=== PATIENT | male | born 1970 | race Caucasian/White ===

== ENCOUNTER 2025-07-31 18:59 | Emergency (ER) | payer OTHER ==
[~2025-07-31] VITALS: Ht 172.7 cm; Wt 130.0 kg
[2025-07-31 19:25] VITALS: RESP 28
[2025-07-31 19:40] LABS: Hematocrit 36.3 % (41.0-53.0); Hemoglobin 12.7 g/dL (13.5-17.5); Mean Corpuscular Hemoglobin 29.0 pg (28.0-32.0); Mean Corpuscular Volume 83.0 fL (80.0-100.0); Nucleated Red Blood Cells % 0.0 %
--- NOTE | 2025-07-31 19:44 | ED.PDOC ---
History of Present Illness HPI Comments 55-year-old, morbidly obese male is brought in by ambulance from [facility] urgent care facility for chief complaint of abdominal and back pain, dysuria, fever, and chills. Significant history for gastritis, GERD, hypertension, sleep apnea, and cholecystectomy. Per EMS personnel report, staff at aforementioned facility called after evaluating the patient for symptoms he has had for the past week and finding him with a temperature of 106.0 F. Patient reports on, initially, being evaluated for symptoms at [facility] on 07/29/2025 and being found with a UTI and prescribed antibiotics after he was suspected on having sepsis then. Patient was given 1 g of Tylenol and ibuprofen prior to EMS personnel arrival on scene. On scene, patient was found NSTEMI with tachycardic rate via 12 lead. All remaining vitals were noted to have been stable and within normal limits, with an initial blood glucose of 165. Patient denies having any chest pain, shortness of breath, or further acute symptoms. EMS interventions: Dextrose and aspirin. Chief Complaint: Fever Time Seen by MD: 19:00 Reviewed Notes: [facility] Technician Notes Allergies: Coded Allergies: NO KNOWN ALLERGIES (Unverified , 07/31/25) Information Source: Patient Mode of Arrival: EMS Severity: Moderate Timing: Days Duration: Since onset Prehospital treatment: 12 Lead EKG, Accucheck, ASA, Last Sorter, Treatment (Dextrose) Past Medical History PAST MEDICAL HISTORY: GERD, HTN Past Medical History (Other): Gastritis Sleep apnea Surgical History: Cholecystectomy Surgical History (Other): Dental implants Right shoulder repair status post torn rotator cuff Family History Family History: No family hx of Cancer, No family hx of DM, No family hx of Heart veronica, No family hx of HTN, No family hx ofKidney veronica, No family hx of Liver veronica, No family hx of Lung veronica, No family hx of Stroke Social History Smoker: Non-Smoker Alcohol: Denies ETOH Use Drugs: Denies Drug Use Lives In: Home Constitutional: reports: chills, fever; denies: diaphoresis, fatigue, malaise, sweats, weakness, others EENTM: denies: blurred vision, double vision, ear bleeding, ear discharge, ear drainage, ear pain, ear ringing, eye pain, eye redness, hearing loss, mouth pain, mouth swelling, nasal discharge, nose bleeding, nose congestion, nose pain, photophobia, tearing, throat pain, throat swelling, voice changes, others Respiratory: denies: cough, hemoptysis, orthopnea, SOB at rest, shortness of breath, SOB with excertion, stridor, wheezing, others Cardiovascular: denies: chest pain, dizzy spells, diaphoresis, Dyspnea on exertion, edema, irregular heart beat, left arm pain, lightheadedness, palpitati ons, PND, syncope, others Gastrointestinal: reports: abdominal pain; denies: abdomen distended, blood streaked bowels, constipated, diarrhea, dysphagia, difficulty swallowing, hematemesis, melena, nausea, poor appetite, poor fluid intake, rectal bleeding, rectal pain, vomiting, others Genitourinary: reports: dysuria; denies: burning, flank pain, frequency, hematuria, incontinence, penile discharge, penile sore, pain, testicle pain, testicle swelling, urgency, others Neurological: denies: dizziness, fainting, headache, left sided numbness, left sided weakness, numbness, paresthesia, pre-existing deficit, right sided numbness, right sided weakness, seizure, speech problems, tingling, tremors, weakness, others Musculoskeletal: reports: back pain; denies: gout, joint pain, joint swelling, muscle pain, muscle stiffness, neck pain, others Integumetry: denies: bruises, change in color, change in hair/nails, dryness, laceration, lesions, lumps, rash, wounds, others Allergic/Immunocompromised: denies: Difficulty Healing, Frequent Infections, Hives, Itching, others Hematologic/Lymphatic: denies: anemia, blood clots, easy bleeding, easy bruising, swollen glands, others Endocrine: denies: excessive hunger, excessive sweating, excessive thirst, excessive urination, flushing, intolerance to cold, intolerance to heat, unexplained weight gain, unexplained weight loss, others Psychiatric: denies: anxiety, bipolar disorder, depression, hopeless, panic disorder, schizophrenia, sleepless, suicidal, others All Other Systems: Reviewed and Negative Physical Exam General Appearance: Moderate Distress HEENT: Normal ENT Inspection, Pharynx Normal, TMs Normal Neck: Full Range of Motion, Non-Tender, Normal, Normal Inspection Respiratory: Chest Non-Tender, Lungs Clear, No Accessory Muscle Use, No Respiratory Distress, Normal Breath Sounds Cardiovascular: No Edema, No JVD, No Murmur, No Gallop, Tachycardia Breast Exam: Deferred Gastrointestinal: No Organomegaly, Non Tender, No Pulsatile Mass, Normal Bowel Sounds, Soft Genitalia: Deferred Pelvic: Deferred Rectal: Deferred Extremities: No calf tenderness, Normal capillary refill, Normal inspection, Normal range of motion, Non-tender, No pedal edema Musculoskeletal : Apperance: Normal Neurologic: Alert, rf manager II-XII nml as Tested, Motor Weakness, Normal Affect, Normal Mood, No Sensory Deficits Cerebellar Function: Normal Reflexes: Normal Skin: Dry, Normal Color, Warm Lymphatic: No Adenopathy Was a procedure done? Was a procedure done?: No EKG EKG #1: Pulse Rate (adult): 117 [place]: Normal Cardiac Rhythm: ST Hypertrophy: None ST: Normal EKG #2: Pulse Rate (adult): 110 [place]: Normal Cardiac Rhythm: ST Block: None Hypertrophy: None ST: Normal Differential Dx Considerations may include: VT, PE, ACS, CAD, URI, pneumonia, angina, cholelithiasis, nephrolithiasis, pyelonephritis, cystitis, among others X-Ray, Labs, Meds, VS Vital Signs Date Time Temp Pulse Resp B/P (MAP) Pulse Ox O2 Delivery O2 Flow Rate FiO2 07/31/25 22:03 104 07/31/25 20:28 110 07/31/25 19:48 110 07/31/25 19:43 117 07/31/25 19:25 28 Room Air* 0 21 07/31/25 19:25 100.6 114 29 110/70 (83) 100.6 07/31/25 19:03 100.6 116 22 125/54 95 100.6 07/31/25 19:00 117 Lab Test 07/31/25 20:45 07/31/25 19:12 Range/Units Urine Color Light-orange Yellow Urine Clarity Turbid H Clear Urine pH 7.5 5.0-9.0 Urine Specific [place] 1.016 1.001-1.035 Urine Protein 1+ H Negative Urine Ketones Negative Negative Urine Blood 3+ H Negative /uL Urine Nitrite Negative Negative Urine Bilirubin Negative Negative Urine Urobilinogen Normal Negative mg/dL Urine Leukocyte Esterase 3+ Negative /uL Urine RBC 1256 0 - 3 /hpf Urine Microscopic WBC 138 H 0-3 /HPF Urine Squamous Epithelial Cells None seen <5 /hpf Urine Bacteria None seen None Seen /hpf Urine Mucus Few None Seen Urine Glucose Normal Normal mg/dL White Blood Count 11.2 H 4.4-10.8 10^3/uL Red Blood Count 4.37 L 4.5-5.90 10^6/uL Hemoglobin 12.7 L 13.5-17.5 g/dL Hematocrit 36.3 L 41.0-53.0 % Mean Corpuscular Volume 83.0 80.0-100.0 fL Mean Corpuscular Hemoglobin 29.0 28.0-32.0 pg Mean Corpuscular Hemoglobin Concent 34.9 32.0-36.0 g/dL Red Cell Distribution Width 14.8 H 11.8-14.3 % Platelet Count 206 140-450 10^3/uL Mean Platelet Volume 8.2 6.9-10.8 fL Neutrophils (%) (Auto) 87.2 H 37.0-80.0 % Lymphocytes (%) (Auto) 6.0 L 10.0-50.0 % Monocytes (%) (Auto) 5.7 0.0-12.0 % Eosinophils (%) (Auto) 0.8 0.0-7.0 % Basophils (%) (Auto) 0.3 0.0-2.0 % Neutrophils # (Auto) 9.8 H 1.6-8.6 10 ^3/uL Lymphocytes # (Auto) 0.7 0.4-5.4 10 ^3/uL Monocytes # (Auto) 0.6 0-1.3 10 ^3/uL Eosinophils # (Auto) 0.1 0-0.8 10 ^3/uL Basophils # (Auto) 0 0-0.2 10 ^3/uL Nucleated Red Blood Cells 0.0 % Sodium Level 136 136-145 mmol/L Potassium Level 3.6 3.5-5.1 mmol/L Chloride Level 102 98-107 mmol/L Carbon Dioxide Level 23 20-31 mmol/L Anion Gap 11 5-15 Blood Urea Nitrogen 12 9-23 mg/dL Creatinine 0.87 0.700-1.30 mg/dL Glomerular Filtration Rate Calc 101 >90 mL/min BUN/Creatinine Ratio 13.8 10.0-20.0 Serum Glucose 182 H 74-106 mg/dL Lactic Acid Level 1.5 0.4-2.0 mmol/L Calcium Level 9.0 8.7-10.4 mg/dL Current Medications Medications (Trade) Dose Ordered Sig/Raven Route Start Time Stop Time Status Last Admin Levofloxacin/ Dextrose 100 ml @ 100 mls/hr ONCE ONCE IV 07/31/25 22:45 07/31/25 23:44 07/31/25 22:53 Chest x-ray shows: IMPRESSION: 1. Prominent bronchovascular markings bilaterally findings may represent chronic or acute disease there are no prior studies for comparison. The patient had an IV Hep-Lock established The patient was given normal saline. The patient was given Toradol IV push for the pain The urine test is positive for sneezing and a UTI The CBC shows an elevated white blood cell count of 11.2 The lactic acid level is within normal limits. At this time, the patient is being transferred to [place]. The patient has a temperature of 100.6 We are giving the patient is more normal saline and the patient will also have vancomycin added The patient is is being passed at this time We spoke with [place] and the authorization number is [id number] Images Reviewed?: Images reviewed and evaluated by me Time of 1ST Reevaluation: 19:30 Reevaluation 1ST: Unchanged Patient Education/Counseling: Diagnosis, Treatment, Prognosis Family Education/Counseling: No Family Present SEPSIS Sepsis Screen Date sepsis recognized/suspect: Jul 31, 2025 Time Sepsis recognized/suspect: 1907 Recent Procedure: No On Antibiotic Therapy: Yes Respiratory Rate >20: Yes Heart Rate >90: Yes Temp<36 C (96.8 F) or >38.3 C: Yes SBP <90 or MAP <65 mmHG: No New Acute Mental Status Change: No Is the patient on CPAP, BIPAP,: No Physician Orders Chest Portable (07/31/25 19:39) Heplock Iv (07/31/25 19:06) Last Sorter (07/31/25 19:06) Blood Pressure (07/31/25 19:06) Pulse Oximetry (07/31/25 19:06) Blood Culture (07/31/25 19:06) Levofloxacin 500mg (Levaquin 500mg/ 100m (07/31/25 22:45) Acetaminophen Tablet (Tylenol Tablet) (07/31/25 23:15) Vital Signs Date Time Temp Pulse Resp B/P (MAP) Pulse Ox O2 Delivery O2 Flow Rate FiO2 11/24/25 22:03 104 07/31/25 20:28 110 07/31/25 19:48 110 07/31/25 19:43 117 07/31/25 19:25 28 Room Air* 0 21 07/31/25 19:25 100.6 114 29 110/70 (83) 100.6 07/31/25 19:03 100.6 116 22 125/54 95 100.6 07/31/25 19:00 117 Laboratory Tests Test 07/31/25 19:12 Lactic Acid Level 1.5 mmol/L (0.4-2.0) White Blood Count 11.2 10^3/uL (4.4-10.8) H Medications Medications Dose Ordered Sig/Raven Route Start Time Stop Time Status Last Admin Dose Admin Levofloxacin/ Dextrose 100 ml @ 100 mls/hr ONCE ONCE IV 07/31/25 22:45 07/31/25 23:44 07/31/25 22:53 Departure 1 Departure Time of Disposition: 23:09 Impression: Primary Impression: UTI (urinary tract infection) Qualified Codes: N30.01 - Acute cystitis with hematuria Additional Impressions: Flank pain Qualified Codes: R10.A3 - Flank pain, bilateral Generalized weakness Disposition: 51 HOSPICE/MEDICAL FACILITY Condition: Fair Critical Care Note Critical Care Time?: No Stability Stability form required: Yes Stable for transfer: Intended for transfer (Health plan request transfer), To designated facility Heart Score Heart Score: Heart Score Response (Comments) Value History Highly Suspicious 2 EKG Normal 0 Age 45-64 1 Risk Factors >3 or Hx ASHD 2 Troponin N/A 0 Total 5 I personally scribed for CLARISA MAGANA MD ([email or web address]) on 07/31/25 at 19:43. Electronically submitted by Huseyin Ring ([email or web address]). I personally scribed for CLARISA MAGANA MD ([email or web address]) on 07/31/25 at 20:28. Elec tronically submitted by Huseyin Ring ([email or web address]). CLARISA MAGANA MD Jul 31, 2025 19:43
[2025-07-31 19:54] LABS: Chloride 102 mmol/L (98-107); Potassium 3.6 mmol/L (3.5-5.1); Sodium 136 mmol/L (136-145)
[2025-07-31 19:55] LABS: Anion Gap 11 (5-15); Carbon Dioxide 23 mmol/L (20-31)
[2025-07-31 19:56] LABS: Calcium 9.0 mg/dL (8.7-10.4)
[2025-07-31 20:00] LABS: BUN/Creatinine Ratio 13.8 (10.0-20.0); Blood Urea Nitrogen 12 mg/dL (9-23)
[2025-07-31 20:05] LABS: Glucose 182 mg/dL (74-106)
--- NOTE | 2025-07-31 20:10 | DVH ---
CHEST RADIOGRAPH Indication: fever Technique: Single frontal view of the chest was obtained Comparison: None FINDINGS: Lines and Tubes: None Lungs: Prominent bronchovascular markings bilaterally may represent pneumonia. Pleura: No effusion. No pneumothorax. Cardiomediastinal contours: Unremarkable Bones: No acute osseous abnormality. IMPRESSION: 1. Prominent bronchovascular markings bilaterally findings may represent chronic or acute disease there are no prior studies for comparison.
[2025-07-31 22:40] LABS: Urine Protein, UAD 1+ (Negative)
--- NOTE | 2025-07-31 23:04 | ECG ---
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
[2025-07-31] MEDS: KETOROLAC TROMETH 30 MG/ML 1ML VIAL IV ONE (23:08)
[2025-07-31] MEDS: ACETAMINOPHEN 325 MG TAB PO ONE (23:11)
[2025-07-31] MEDS: SODIUM CHLORIDE 0.9% 2,050 ML IV ONE (23:36)
[2025-07-31] MEDS: VANCOMYCIN 1GM/250ML KIT 250 ML IV ONE (23:49)
[2025-07-31 23:54] VITALS: BP 135/65; PULSE 105; RESP 19; O2SAT 95
[2025-08-01 00:11] VITALS: TEMP 100.5
--- NOTE | 2025-08-01 10:42 | ECG ---
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
--- NOTE | 2025-08-01 10:43 | ECG ---
[facility] Test Date: 2025-07-31 Test Time: 22:03:20 Pat Name: ALIREZA CEBALLOS Department: ED Room: Gender: M Pulley Man: STUART : 1970 Requested By: CLARISA MAGANA Order Number: [id number] Reading MD: Andrea Butterfield Measurements Intervals [place] Rate: 104 P: 35 [place]: 167 QRS: 246 QRSD: 119 T: 52 QT: 374 QTc: 492 Interpretive Statements Sinus tachycardia Probable left atrial enlargement Nonspecific IVCD with LAD ST elevation suggests acute pericarditis Electronically Signed On 08-02-2025 17:40:37 PST by Andrea Butterfield Please click the below link to view image of tracing.
== END 2025-08-01 00:10 | disposition short-term general hospital (02) ==
LOC: EDBD 18:59 → ER 18:59
DX: N39.0 Urinary tract infection, site not specified (principal); R10.A3 Flank pain, bilateral; M54.9 Dorsalgia, unspecified; G47.30 Sleep apnea, unspecified; I10 Essential (primary) hypertension; Z88.6 Allergy status to analgesic agent; Z90.49 Acquired absence of other specified parts of digestive tract; Z96.611 Presence of right artificial shoulder joint
CPT/HCPCS: 36415; 71045; 80048; 81001; 83605; 85025; 87040; 93005; 96365; 99285; J1956; J7030